=== PATIENT | male | born 1955 | race Caucasian/White ===

== ENCOUNTER 2017-03-21 16:43 | Emergency (ER) | payer SELFPAY ==
[2017-03-21] MEDS ORDERED: NS 1,000 ML IV ONE (16:47)
--- NOTE | 2017-03-21 16:53 | EDPHY ---
H & P HPI/ROS: CHIEF COMPLAINT: Seizure times two HISTORY OF PRESENT ILLNESS: The the patient is a 61-year-old man who is brought in by EMS after having a seizure at home the garden. He according to EMS the patient's states that he has a seizure disorder but does not take any medications. He did drink alcohol and use marijuana today. He was in the garden when he had a unwitnessed seizure. Paramedics were called a placed in a cervical collar. They state that he was postictal and beginning to recover when he had another seizure in the back of the ambulance. With this he was given 5 mg of IV Versed. His symptoms resolved. He is still postictal and not talkative. He will respond to pain. No external signs of injury. REVIEW OF SYSTEMS: See HPI EXAM: GENERAL: Under unresponsive, response to pain, HEAD: Atraumatic, normocephalic. EYES: Pupils equal round and reactive to light, extraocular movements intact, sclera anicteric, conjunctiva are normal. ENT: TMs normal, nares patent, oropharynx clear without exudates. Moist mucous membranes. No visible tongue injury NECK: Normal range of motion, supple without lymphadenopathy or JVD. LUNGS: Breath sounds clear to auscultation bilaterally and equal. No wheezes rales or rhonchi. Breathing rapidly HEART: Regular rate and rhythm without murmurs, rubs or gallops. ABDOMEN: Soft, nontender, normoactive bowel sounds. No guarding, no rebound. No masses appreciated. BACK: No CVA tenderness, no spinal tenderness, step-offs or deformities EXTREMITIES: No clubbing or cyanosis. Is purposeful movement upper extremities, no visible movement in legs. NEUROLOGICAL: Does not cooperate with exam, no visible movement in legs. Is primarily moving his left arm compared to the right. No incontinence PSYCH: The not cooperative SKIN: Warm, dry, normal turgor, no visible rashes or lesions. Source: EMS Exam Limitations: Clinical condition - Medical/Surgical History Other PMH: Seizure disorder - Family History Significant Family History: No pertinent family hx - Social History Alcohol Use: Occasionally Drug Use: Marijuana Constitutional: Initial Vital Signs Temperature (C) 36.4 C 03/21/17 16:53 Heart Rate 97 03/21/17 16:53 Respiratory Rate 16 03/21/17 16:53 Blood Pressure 135/91 H 03/21/17 16:53 O2 Sat (%) 86 L 03/21/17 16:53 O2 Delivery Mode Room Air O2 (L/minute) 4 Allergies/Adverse Reactions: Unable to Assess Allergy (Unverified 03/21/17 17:10) Home Medications: Medication Instructions Recorded Unobtainable 03/21/17 Medical Decision Making - Diagnostics EKG Interpretation: An EKG obtained and was read and documented in trace view. Please see trace view for full reading and report. Sinus rhythm, no acute ischemic changes Imaging: Discussed imaging studies w/ yardage caller Radiologist Procedures: Intubation: emergent intubation. While manually bagging the patient and maintaining the airway, The patient was sedated with 20 mg of Etomidate and paralyzed with 100 mg of succinylcholine. A 7.5 endotracheal tube was placed using the Glidescope. It was placed at 23 cm at the teeth. Placement was confirmed by direct visualization, good color change, and bilateral breath sounds with absent gastric sounds. Chest x-ray is pending. Saturations improved significantly and the procedure was successful. ED Course/Re-evaluation: Is 5:30 p.m. I reexamined the patient. He is still postictal. We expedited his CT scanning. I am concerned because he tends have a leftward gaze. I have not seen him in move either legs and he is now not moving his right arm. He does grimace to pain equally in his face. When pinched on the right arm he moves his left arm to grab. 5:45 p.m. the patient began having another seizure during his CT scan. This is his 3rd and possibly 4th seizure. I noticed that he is now incontinent of urine which she was not on arrival. He has not cleared in between. He is in status epilepticus. He was given 2 of IV Ativan and is seizure-like activity stopped. He is brought back to the ER intubated and paralyzed. I have given 4 more of Versed and we will complete the imaging of his C-spine and also do angiogram of his vasculature. I have paged [facility] for status epilepticus. 6:05 p.m. I was able to speak with the patient's more. She states that the patient was in the yard smoking marijuana with his son when he had a seizure. He fell into the gravel and hit his neck on an aluminum Down spout. The patient is now intubated and is going back to CT scan. He had another seizure after intubation and was given a propofol bolus and started on a drip. I spoke with Dr. Lozano from [facility] who agrees with the imaging but does not need to have the angiogram. He also requests that we load with Keppra. We have called helicopter transport. They will accept him to the neuro critical care unit. The patient's is here but states she will not be able to drive to [facility] [place] because she does not drive at night. She will provide her phone number. 6:27 p.m. The patient is having purposeful movements but slightly combative. We will increase his propofol drip to 15 an hour. He is receiving the Keppra load 1000 [address] will print [address] CDs for transfer. Chest x-ray reveals ET tube slightly elevated. Will advance [address] read is nothing acute. Differential Diagnosis: Partial list of the Differential diagnosis considered include but were not limited to; seizure, status epilepticus, withdrawal and although unlikely based on the history and physical exam, I also considered intracranial hemorrhage, fracture, cervical spine injury, trauma. Critical Care Time: Critical care time spent by me, Dr. Santos exclusive with this patient was 45 minutes, exclusive of the PA time exclusive of procedures. The organ system that was at risk was neurologic and I gave medications, consultation and transfer to prevent worsening of the patient's condition - Data Points Laboratory Results: Laboratory Results 03/21/17 16:57 03/21/17 16:57 Medications Given: Propofol (Diprivan 10 Mg/Ml (Premix)) 100 mls @ 0 mls/hr IV CONT PAULINE; Titrate PRN Reason: Protocol Stop: 09/17/17 17:59 Last Admin: 03/21/17 22:18 Dose: 100 mls Discontinued Medications Etomidate (Etomidate) 20 mg IVP EDNOW ONE Stop: 03/21/17 17:51 Last Admin: 03/21/17 17:50 Dose: 20 mg Sodium Chloride (Ns) 1,000 mls @ 0 mls/hr IV ONCE ONE; Wide Open PRN Reason: Protocol Stop: 03/21/17 16:48 Last Admin: 03/21/17 16:47 Dose: 1,000 mls Levetiracetam 1,000 mg/ Sodium (Chloride) 110 mls @ 440 mls/hr IV EDNOW ONE Stop: 03/21/17 18:20 Last Admin: 03/21/17 18:06 Dose: 110 mls Lorazepam (Ativan Injection) 2 mg IVP EDNOW ONE Stop: 03/21/17 18:26 Last Admin: 03/21/17 18:25 Dose: 2 mg Midazolam HCl (Versed) 4 mg IVP EDNOW ONE Stop: 03/21/17 17:56 Last Admin: 03/21/17 17:55 Dose: 4 mg Propofol (Diprivan) 50 mg IVP EDNOW ONE Stop: 03/21/17 18:01 Last Admin: 03/21/17 18:00 Dose: 50 mg Propofol (Diprivan) 50 mg IVP EDNOW ONE Stop: 03/21/17 18:28 Last Admin: 03/21/17 18:27 Dose: 50 mg Succinylcholine Chloride (Quelicin) 100 mg IVP EDNOW ONE Stop: 03/21/17 17:51 Last Admin: 03/21/17 17:50 Dose: 100 mg Departure - Departure Disposition: Acute Care Hospital [facility] Clinical Impression: Status epilepticus Condition: Critical Referrals: Patient,NotPresent [Unknown] - As per Instructions
--- NOTE | 2017-03-21 16:55 | CPEKG ---
Heart Rate: 88 RR Interval: 682 P-R Interval: 172 QRSD Interval: 92 QT Interval: 388 QTC Interval: 470 P Am[place]: 18 QRS Amenia: 80 T Wave Amenia: 85 EKG Severity - NORMAL ECG - EKG Impression: SINUS RHYTHM Electronically Signed By: Ralph Santos 21-Mar-2017 16:58:31
[2017-03-21 17:06] LABS: % IMMATURE GRANULYOCYTES 0.5 % (0.0-1.1); ABSOLUTE IMMATURE GRANULOCYTES 0.07 10^3/uL (0.00-0.10); ADD DIFF? NO; ADD MORPH? NO; ADD SCAN? NO; ATYPICAL LYMPHOCYTE FLAG 20 (0-99); FRAGMENT RBC FLAG 0 (0-99); HEMATOCRIT 47.7 % (40.0-51.0); LEFT SHIFT FLG 0 (0-99); LIPEMIA HEMOLYSIS FLAG 80 (0-99); MEAN CELL HEMOGLOBIN 32.7 pg (27.9-34.1); MEAN CELL HEMOGLOBIN CONCENTR. 31.4 g/dL (32.4-36.7); MEAN CELL VOLUME 103.9 fL (81.5-99.8); MEAN PLATELET VOLUME 10.2 fL (8.7-11.7); PLATELET CLUMPS FLAG 0 (0-99); PLATELET COUNT 349 10^3/uL (150-400); RED BLOOD CELL COUNT 4.59 10^6/uL (4.40-6.38)
[2017-03-21 17:15] LABS: ANION GAP 32 mEq/L (8-16); CALCIUM 9.3 mg/dL (8.5-10.4); CARBON DIOXIDE 12 mEq/l (22-31); CHLORIDE 102 mEq/L (97-110); CREATININE 1.2 mg/dL (0.7-1.3); GLOMERULAR FILTRATION RATE > 60; GLUCOSE 109 mg/dL (70-100); POTASSIUM 3.8 mEq/L (3.5-5.2); SODIUM 146 mEq/L (134-144)
[2017-03-21] MEDS ORDERED: LORazepam 2 MG/ML INJ ONE ×2 (17:44→18:23)
[2017-03-21] MEDS ORDERED: ETOMIDATE 40 MG/20 ML INJ IVP ONE (17:50)
[2017-03-21] MEDS ORDERED: SUCCINYLCHOLINE CHLORIDE 200 MG/10 ML VIAL IVP ONE (17:50)
[2017-03-21] MEDS ORDERED: MIDAZOLAM 2 MG/2 ML VIAL IVP ONE (17:55)
[2017-03-21] MEDS ORDERED: IOPAMIDOL (ISOVUE 370) 100 ML BTL IV ONE (17:56)
[2017-03-21] MEDS ORDERED: PROPOFOL 200 MG/20 ML VIAL IVP ONE ×2 (18:00→18:27)
[2017-03-21] MEDS ORDERED: PROPOFOL/EMULSION 100 ML IV SCH (18:00)
[2017-03-21] MEDS ORDERED: levETIRAcetam 1,000 MG in NS 100 ML IV ONE (18:06)
[2017-03-21] MEDS ORDERED: PROPOFOL/EMULSION 1,000 MG/100 ML BOTTLE IV ONE (18:24)
[2017-03-21] MEDS ORDERED: LORazepam 2 MG/ML INJ IVP ONE (18:25)
[2017-03-21 18:47] LABS: BASE EXCESS -5.8 mEq/L (-2.5-2.5); BICARBONATE 18 mEq/L (22-26); MEASURED OXYGEN SATURATION 98 % (92-95); PCO2 33 mmHg (34-38); PO2 115 mmHg (65-75); TCO2 19 mEq/L (23-27)
[2017-03-21 18:48] LABS: END TIDAL CO2 37; O2 CONCENTRATIION 60 % (0-100); P/F RATIO 192 RATIO; PATIENT RATE 32; PRESSURE SUPPORT 7; SIMV YES
[2017-03-21] MEDS ORDERED: ETOMIDATE 40 MG/20 ML INJ ONE (20:10)
[2017-03-21] MEDS ORDERED: SUCCINYLCHOLINE CHLORIDE 200 MG/10 ML SYR IVP ONE (20:10)
[2017-03-21] MEDS ORDERED: MIDAZOLAM 2 MG/2 ML VIAL ONE (20:11)
[2017-03-21 23:32] VITALS: BP 154/99; PULSE 115; RESP 20; TEMP 98.6; O2SAT 99
== END 2017-03-21 19:23 | disposition short-term general hospital (02) ==
PROC: 0BH17EZ Insertion of Endotracheal Airway into Trachea, Via Natural or Artificial Opening (ICD-10-PCS; principal; 2017-03-21)
DX: G40.901 Epilepsy, unspecified, not intractable, with status epilepticus (principal); E86.9 Volume depletion, unspecified
CPT/HCPCS: 96374; J0330; J1953; J2060; J2250; J2704; Q9967